=== PATIENT | female | born 1975 | race Caucasian/White ===

== ENCOUNTER 2018-09-07 09:06 | Outpatient (CLI) | payer OTHER ==
[~2018-09-07 09:06] MED LIST: Gadobenate Dimeglumine 529 MG/1 ML (20ML VIAL) ONE
--- NOTE | 2018-09-07 14:51 | MRI ---
MRI ABDOMEN WITH AND WITHOUT IV CONTRAST: HISTORY: A 43-year-old female with a liver mass. CORRELATION: CT abdomen and pelvis and right upper quadrant ultrasound from 08/25/2018 from the [facility]. FINDINGS: There are a few small lesions in the right lobe of the liver, with low T1 and high T2 signal and no p ost contrast enhancement, consistent with cysts. The largest of these is at the anterior aspect of t he right lobe, measuring 1 cm. In the left lobe of the liver, there is a 1.7 cm lesion, with high T2 signal, post contrast peripheral nodular enhancement, and centripetal filling, consistent with heman gioma. The spleen, pancreas, adrenal glands, and kidneys are normal. The gallbladder is normal. No free fluid or lymphadenopathy is noted in the abdomen. There is no evidence of aneurysmal dilatatio n of the abdominal aorta. The bone marrow signal is normal. IMPRESSION: Liver hemangioma and small liver cysts. POS: [facility]
== END 2018-09-07 09:07 | disposition home or self-care (01) ==
LOC: SCSMRI 09:06
PROVIDERS: ATTEND Internal Medicine Gastroenterology
DX: R93.5 Abnormal findings on diagnostic imaging of other abdominal regions, including retroperitoneum (principal); D18.03 Hemangioma of intra-abdominal structures; N28.1 Cyst of kidney, acquired
CPT/HCPCS: 74183; A9579